=== PATIENT | female | born 1965 | race Caucasian/White ===

== ENCOUNTER 2019-07-02 20:13 | Emergency (ER) | payer SELFPAY ==
[2019-07-02] MEDS ORDERED: FLU Vacc QS2019-20(6MOS+)/PF 60 MCG/0.5 ML SYRINGE IM ONE (20:30)
[2019-07-02] MEDS ORDERED: Sodium Chloride 0.9% 10 ML Syringe FLUSH PRN (20:37)
[2019-07-02] MEDS ORDERED: diphenhydrAMINE 50 MG/ML SDV IVPUSH ONE (20:37)
[2019-07-02] MEDS ORDERED: Ketorolac 30 MG/ML SDV IVPUSH ONE (20:37)
[2019-07-02] MEDS ORDERED: Metoclopramide 10 MG/2 ML SDV IVPUSH ONE (20:37)
[2019-07-02] MEDS ORDERED: Sodium Chloride 0.9% 1,000 ML IV SCH (20:45)
--- NOTE | 2019-07-02 21:27 | EDM.PDOC ---
ED HPI GENERAL MEDICAL PROBLEM - General Chief Complaint: Headache Stated Complaint: headache Time Seen by Provider: 07/02/19 20:19 Source of Information: Reports: Patient, RN Notes Reviewed History Limitations: Reports: No Limitations - History of Present Illness INITIAL COMMENTS - FREE TEXT/NARRATIVE: Patient is a 53-year-old female who presents to the ED for the evaluation of a headache. Patient notes that she made a recent move to [place] from [place] , she's been having a sinus headache for the last 2 months. She was evaluated in May by Dr. Galdamez, and got a little bit headache relief, however this is not gone completely away. She has been trying Vicks sinex for the headache and has gotten no relief, but this messes with her blood pressure, she states she currently has high blood pressure and this increases it further. She states that she takes metoprolol 50 mg twice a day for her high blood pressure. Patient states that the can only gets a headache to go away for about 15 minutes at a time. Patient states that she is light and sound sensitive. Her last dose of medication of the Sinex was around 3:30 this afternoon. The patient notes that the atmosphere in [place] is a lot different than they have in [place] and she's been having sinus issues ever since she moved here. She notes a history to sulfa allergies, for which she gets a rash. She notes that she is a smoker, she smokes one pack per day for 30 years, she drinks very very occasionally, and relays only about 4-5 drinks per year. Headache Pain Score (Numeric/FACES): 8 - Related Data Allergies Allergy/AdvReac Type Severity Reaction Status Date / Time Sulfa (Sulfonamide Allergy Rash Verified 07/02/19 20:37 Antibiotics) Home Meds: Home Meds Metoprolol Succinate 50 mg PO BID 05/07/19 [History] atorvaSTATin Calcium [Lipitor] 20 mg PO DAILY 05/07/19 [History] Naproxen 500 mg PO DAILY PRN 07/02/19 [History] Past Medical History HEENT History: Reports: Impaired Vision Cardiovascular History: Reports: High Cholesterol, Hypertension Respiratory History: Reports: None Gastrointestinal History: Reports: None Genitourinary History: Reports: UTI, Recurrent [employer] History: Reports: , Spontaneous , Therapeutic Musculoskeletal History: Reports: Neck Pain, Chronic Neurological History: Reports: Migraines Psychiatric History: Reports: Depression Endocrine/Metabolic History: Reports: None, Obesity/BMI 30+ Hematologic History: Reports: None Immunologic History: Reports: None Oncologic (Cancer) History: Reports: None Dermatologic History: Reports: None - Infectious Disease History Infectious Disease History: Reports: Chicken Pox - Past Surgical History Head Surgeries/Procedures: Reports: None HEENT Surgical History: Reports: Oral Surgery Female Surgical History: Reports: Hysterectomy Social & Family History - Family History Family Medical History: Noncontributory Psychiatric: Reports: Depression Oncologic: Reports: Breast - Tobacco Use Smoking Status *Q: Current Every Day Smoker Years of Tobacco use: 35 Packs/Tins Daily: 0.5 - Caffeine Use Caffeine Use: Reports: Soda - Recreational Drug Use Recreational Drug Use: No - Living Situation & Occupation Living situation: Reports: Occupation: Unemployed ED ROS GENERAL - Review of Systems Review Of Systems: See Below Constitutional: Denies: Fever, Chills HEENT: Denies: Vision Change Respiratory: Reports: No Symptoms Cardiovascular: Reports: No Symptoms Endocrine: Reports: No Symptoms GI/Abdominal: Reports: No Symptoms : Reports: No Symptoms Musculoskeletal: Reports: No Symptoms Skin: Reports: No Symptoms Neurological: Reports: Headache (frontal/sinus headache) Psychiatric: Reports: No Symptoms Hematologic/Lymphatic: Reports: No Symptoms Immunologic: Reports: No Symptoms - Physical Exam Exam: See Below Exam Limited By: No Limitations General Appearance: Alert, WD/WN, No Apparent Distress Eye Exam: Bilateral Eye: EOMI, Normal Inspection, PERRL Throat/Mouth: Normal Inspection, Normal Lips, Normal Teeth, Normal Gums, Normal Oropharynx, Normal Voice, No Airway Compromise Head Exam: Atraumatic, Normocephalic Neck: Normal Inspection Respiratory/Chest: No Respiratory Distress, Lungs Clear, Normal Breath Sounds, No Accessory Muscle Use, Chest Non-Tender Cardiovascular: Normal Peripheral Pulses, Regular Rate, Rhythm, No Murmur GI/Abdominal: Normal Bowel Sounds, Soft, Non-Tender, No Distention, No Mass Neuro Exam (Abbreviated): Alert, Oriented, Normal Cognition, No Motor/Sensory Deficits Extremities: Normal Inspection, Normal Capillary Refill Psychiatric: Normal Affect, Normal Mood Skin Exam: Warm, Dry, Intact, Normal Color, No Rash Course - Vital Signs Last Recorded V/S: Last Vital Signs Temp 96.7 F 07/02/19 20:18 Pulse 73 10/02/19 20:18 Resp 16 07/02/19 20:18 BP 121/71 07/02/19 21:21 Pulse Ox 98 07/02/19 20:18 - Orders/Labs/Meds Orders: Active Orders 24 hr Category Date Time Status Influenza Vaccine Charge [RC] .DISCHARGE Care 07/02/19 20:24 Active Peripheral IV Care [RC] . DIRECTED Care 07/02/19 20:37 Active Peripheral IV Insertion Adult [OM.PC] Routine Oth 07/02/19 20:37 Ordered Meds: Medications Discontinued Medications Generic Name Dose Route Start Last Admin Trade Name Freq PRN Reason Stop Dose Admin Diphenhydramine HCl 25 mg 07/02/19 20:37 07/02/19 20:48 Benadryl IVPUSH 07/02/19 20:38 25 mg ONETIME ONE Administration Sodium Chloride 1,000 mls @ 125 mls/hr 07/02/19 20:45 07/02/19 20:46 Normal Saline IV 125 mls/hr ASDIRECTED KWAME Administration Influenza Virus Vaccine 1 each 07/02/19 20:24 Pharmacy To Dose - Influenza Vaccine IM 07/02/19 20:25 ONETIME ONE Influenza Virus Vaccine 60 mcg 07/02/19 20:30 07/02/19 20:34 Fluzone Quad [id number] Syringe IM 07/02/19 20:31 60 mcg .ONCE ONE Administration Ketorolac Tromethamine 30 mg 07/02/19 20:37 07/02/19 20:48 Toradol IVPUSH 07/02/19 20:38 30 mg ONETIME ONE Administration Metoclopramide HCl 10 mg 07/02/19 20:37 07/02/19 20:46 Reglan IVPUSH 07/02/19 20:38 10 mg ONETIME ONE Administration Sodium Chloride 10 ml 07/02/19 20:37 07/02/19 20:47 Saline Flush FLUSH 10 ml ASDIRECTED PRN Administration Keep Vein Open - Re-Assessments/Exams Free Text/Narrative Re-Assessment/Exam: 07/02/19 20:29 Patient presents to the ED for the evaluation of a headache. I did order an IV to be placed, IVF, 30mg IV toradol, 25mg IV Benadryl, and 10mg IV Reglan for initial management. 07/02/19 21:49 Patient was reassessed at bedside, and states she is feeling much better. And is ready to go home at this time. We'll discharge her home with general recommendations. Departure - Departure Time of Disposition: 21:50 Disposition: Home, Self-Care 01 Condition: Fair Clinical Impression: Headache Qualifiers: Headache type: unspecified Headache chronicity pattern: acute headache Intractability: not intractable Qualified Code(s): R51 - Headache - Discharge Information *PRESCRIPTION DRUG MONITORING PROGRAM REVIEWED*: No *COPY OF PRESCRIPTION DRUG MONITORING REPORT IN PATIENT TI: No Instructions: Sinus Headache, [id number] Referrals: PCP,None [Primary Care Provider] - Forms: ED Department Discharge Additional Instructions: You were evaluated in the ED for your headache. You were given a combination of medications and IV fluid for management. This did seem to provide you pretty good relief of your symptoms. Recommend that you go home and rest in a quiet darkened room. Try also to keep well hydrated. Please return to the ED if your symptoms should change or worsen. - My Orders Last 24 Hours: My Active Orders 07/02/19 20:24 Influenza Vaccine Charge [RC] .DISCHARGE 07/02/19 20:37 Peripheral IV Care [RC] . DIRECTED Peripheral IV Insertion Adult [OM.PC] Routine - Assessment/Plan Last 24 Hours: My Active Orders 07/02/19 20:24 Influenza Vaccine Charge [RC] .DISCHARGE 07/02/19 20:37 Peripheral IV Care [RC] . DIRECTED Peripheral IV Insertion Adult [OM.PC] Routine
== END 2019-07-02 21:57 | disposition home or self-care (01) ==
LOC: JD.ED 20:13
DX: R51 Headache (principal); E78.00 Pure hypercholesterolemia, unspecified; I10 Essential (primary) hypertension; E66.9 Obesity, unspecified; F17.210 Nicotine dependence, cigarettes, uncomplicated; Z68.29 Body mass index [BMI] 29.0-29.9, adult; Z88.2 Allergy status to sulfonamides; Z79.899 Other long term (current) drug therapy; Z23 Encounter for immunization
CPT/HCPCS: 90471; 90686; 96361; 96374; 96375; 99283; J1200; J1885; J2765; J7040; 99284; G0008